=== PATIENT | male | born 2005 | race Two or more races ===

== ENCOUNTER 2024-09-13 05:52 | Emergency (ER) | payer MEDICAID, SELFPAY ==
[2024-09-13 05:53] VITALS: BMI 27.8
[2024-09-13 06:04] VITALS: BP 174/75; PULSE 114; RESP 20; TEMP 37.2; O2SAT 98
--- NOTE | 2024-09-13 06:26 | XR_ITS ---
Examination: Thoracic spine 3 views Technique one AP lateral coned lateral upper dorsal spine 3 views Exam date and time: September 13, 2024 0636 hours INDICATIONS: Onset upper back pain today. FINDINGS: Mild kyphosis dorsal spine secondary to mild likely developmental wedging of mid to lower dorsal vertebral bodies No acute thoracic fracture Intact pedicles No cortical bone destruction IMPRESSION: Mild kyphosis dorsal spine secondary to mild likely developmental wedging mid to lower dorsal vertebral bodies
--- NOTE | 2024-09-13 06:27 | PD.EDRME ---
Rapid Medical Screening Exam RME Arrival date/time: 09/13/24 05:52 This is a 19-year-old male presents to the emergency department with complaints of bilateral flank pain. I have greeted and performed a focused initial assessment of this patient. Initial appropriate labs ordered at this time. A comprehensive ED assessment and evaluation of the patient and analysis of all test and completion of medical decision making process will be conducted by additional ED provider. Chief Complaint: Back Pain/Injury Time Seen by Provider: 09/13/24 06:13 Vital signs: Vital Signs Temperature 98.9 F 09/13/24 06:04 Pulse Rate 114 H 09/13/24 06:04 Respiratory Rate 20 09/13/24 06:04 Blood Pressure 174/75 H 09/13/24 06:04 Pulse Oximetry (%) 98 09/13/24 06:04 Oxygen Delivery Method Room Air 09/13/24 06:04
[2024-09-13 07:17] LABS: Basophils % (Auto) 0 % (0-2.5); Eosinophils % (Auto) 0 % (0-10); Hematocrit 45.5 % (41.0-53.0); Hemoglobin 15.9 g/dL (13.5-16.0); Immature Granulocytes % (Auto) 0 % (0-0); Immature Granulocytes Auto 0.04 Thou/mm3 (0.00-0.00); Lymphocytes # (Auto) 1.3 Thou/mm3 (1.0-4.8); Lymphocytes % (Auto) 11 % (10-50); Mean Corpuscular HGB Conc 34.9 g/dl (31.0-37.0); Mean Corpuscular Hemoglobin 29.9 pg (25.0-35.0); Mean Corpuscular Volume 86 fL (80-100); Monocytes # (Auto) 0.4 Thou/mm3 (0.0-0.8); Monocytes % (Auto) 3 % (0-12); Neutrophils # (Auto) 10.4 Thou/mm3 (1.8-7.7); Neutrophils % (Auto) 85 % (37-80); Nucleated Red Blood Cell % 0 /100 WBC (0); Platelet Count 262 Thou/mm3 (140-440); RDW Standard Deviation 37.5 fL (35.1-43.9); Red Blood Count 5.31 Miln/mm3 (4.50-5.90); White Blood Count 12.3 Thou/mm3 (3.8-10.6)
[2024-09-13 07:19] LABS: Collection Type, Urine Clean Catch
[2024-09-13 07:41] LABS: Bilirubin,Urine Negative (Negative); Blood,Urine Negative (Negative); Clarity,Urine Clear (Clear/Hazy); Color,Urine Lt-Yellow (Lt Yel-Yel); Glucose, Urine Negative (Negative); Ketones,Urine Negative (Negative); Leukocyte Esterase,Urine Negative (Negative); Nitrite,Urine Negative (Negative); PH,Urine 6.5 (5.0-7.0); Protein,Urine 1+ (Neg - Trace); RBC,Urine 3 /hpf (0-3); Specific Gravity,Urine 1.035 (1.001-1.035); Squamous Epithelial Cell,Urine < 1 /hpf (0-5); Urobilinogen,Urine Negative mg/dL (0.0-1.0); WBC,Urine < 1 /hpf (0-5)
[2024-09-13 07:43] LABS: Alanine Aminotransferase 51 U/L (10-49); Albumin/Globulin Ratio 1.8 (1.2-2.2); Alkaline Phosphatase 86 U/L (46-116); Anion Gap 10 (7-16); Aspartate Amino Transferase 20 U/L (0-34); BUN/Creatinine Ratio 12 Ratio (12-20); Bilirubin,Total 0.5 mg/dL (0.3-1.2); Blood Urea Nitrogen 13 mg/dL (9-23); Calcium 10.1 mg/dL (8.3-10.6); Calcium (Corrected) 10.1 mg/dL (8.5-10.1); Carbon Dioxide 25.8 mMol/L (20.0-31.0); Chloride 102 mMol/L (98-107); Creatinine (Component) 1.1 mg/dL (0.6-1.3); Estimated Creatinine Clearance 122.4 mL/min (>60); Globulin 2.8 gm/dL (2.3-3.5); Glucose 117 mg/dL (74-106); Lipase 37 U/L (12-53); Osmolality,Calculated 276 (275-295); Potassium 3.8 mMol/L (3.4-5.1); Sodium 138 mMol/L (136-145); Total Protein 7.8 gm/dL (5.7-8.2); eGFR > 60 See Note
--- NOTE | 2024-09-13 10:15 | CHAP ---
Talked briefly with patient. He said everything was good.
[2024-09-13 12:54] VITALS: BP 128/81; PULSE 94; RESP 18; TEMP 36.5; O2SAT 98
== END 2024-09-13 14:51 | disposition left against medical advice (07) ==
PROVIDERS: Nurse Practitioner Primary Care; Emergency Provider Emergency Medicine; PCP Family Medicine
DX: M54.9 Dorsalgia, unspecified (principal); Z53.29 Procedure and treatment not carried out because of patient's decision for other reasons
CPT/HCPCS: 36415; 72070; 80053; 81001; 83690; 85025; 99281